=== PATIENT | female | born 1970 | race Caucasian/White ===

== ENCOUNTER → 2017-12-04 14:42 | Outpatient (CLI) | payer BC | END | disposition home or self-care (01) | LOC: D.MRI 14:42 | DX: M25.561 Pain in right knee (principal) ==

== ENCOUNTER → 2018-07-24 10:49 | Outpatient (CLI) | payer BC | END | disposition home or self-care (01) | LOC: D.MRI 10:49 | DX: M54.5 Low back pain (principal) ==

== ENCOUNTER → 2018-08-07 09:46 | Outpatient (CLI) | payer BC ==
--- NOTE | ~2018-08-07 | HEMODYNAMI ---
PATIENT:JASON DA SILVA MEDICAL RECORD: [id number] : 74 LOCATION:[facility] ADMISSION DATE: 08/07/18 Generatedon:08/07/201810:51 Patient name: JASON DA SILVA Patient #: [id number] SSN : : 1970 Date of study: 08/07/2018 Page: Of Hemodynamic Procedure Report Patient Data Patient Demographics Procedure consent was obtained First Name: JASON Gender: Female Last Name: REKHA : 1970 Patient #: [id number] Age: 48 year(s) Race: Unknown Additional ID: [id number] Contact details [address]: [address] [place] [address] rd State: [place] City: [place] Zip code: [address] Past Medical History Allergies Allergen Reaction Date Comments Reported Codeine 08/07/2018 Admission Admission Data Admission Date: 08/07/2018 Admission Time: 9:46 Procedure Procedure Types Cath Procedure Peripheral Cath Diagnostic Procedure Miscellaneous Aspiration/Injection (Joint) Procedure Description Procedure Date Procedure Date: 08/07/2018 Procedure Start Time: 10:35 Procedure Staff Name Function Gia Mas MD Performing Physician Gasper Marie RT Monitor Shirlene Thompson RN Nurse Procedure Data Cath Procedure Fluoroscopy Diagnostic fluoroscopy Total fluoroscopy Time: 0.9 time: 0.9 min min Diagnostic fluoroscopy Total fluoroscopy dose: 43 dose: 43 mGy mGy Hemodynamics Rest Pre Cath Intra NCS Post Cath Procedure Log Time Note 10:23:38 Gasper Marie RT (R) (CV) sent for patient. Start room use. 10:24:10 Patient received from Outpatients to IR Alert and oriented. Tansferred to table in Prone position. 10:24:19 Correct patient and procedure confirmed by team. 10:24:20 Signed procedure consent form obtained from patient. 10:24:24 Full Disclosure recording started 10:24:25 - 10:24:27 Pre-procedure instructions explained to patient. 10:24:28 Pre-op teaching completed and patient verbalized understanding. 10:24:51 Patient allergic to Codeine 10:25:04 Is patient on blood thinner?No 10:25:51 Right Lumbar was prepped with betadine and draped in sterile fashion. 10:35:19 Physician arrived 10:35:19 --------ALL STOP TIME OUT------ 10:35:22 Final Timeout: patient, procedure, and site verified with staff and physician. All members of the team are in agreement. 10:35:26 Lumbar site verified by team. 10:35:31 Sedation plan: Local Anesthetic Medication:Lidocaine 10:35:54 Procedure started. 10:35:59 Local anesthetic to Lumbar area with Lidocaine 1% by Gia Mas MD.INITIAL ACCESS ONLY 10:36:06 SAFE-T PLUS MYELOGRAM TRAY opened to sterile field. 10:48:43 Procedure ended.(Physican Out) 10:49:23 Fluoroscopy time 00.90 minutes. 10:49:26 Flurop Dose total: 43 10:49:26 Fluoroscopy dose: 43 mGy 10:50:07 bandaide applied to site .pt sent home Device Usage Item Name Manufacture Quantity Catalog Hospital Part Current Minimal Lot# / Number Charge Number Stock Stock Serial# Code SAFE-T [employer] 1 [id number] PLUS MYELOGRAM TRAY Signature Audit Temple Stage Time Signature Unsigned Intra-Procedure 08/07/2018 Gasper 10:51:01 AM Frank RT (R) (CV) Signatures Monitor : Gasper Signature : Frank RT Date : Time : [facility] [address] [place], [place] [id number]
== END | disposition home or self-care (01) ==
LOC: D.RAD 08-06 11:00
DX: M46.1 Sacroiliitis, not elsewhere classified (principal)

== ENCOUNTER → 2018-08-16 12:46 | Outpatient (CLI) | payer BC ==
--- NOTE | ~2018-08-16 | HEMODYNAMI ---
PATIENT:JASON DA SILVA MEDICAL RECORD: [id number] : 74 LOCATION:[facility] ADMISSION DATE: 08/16/18 Generatedon:08/16/201814:00 Patient name: JASON DA SILVA Patient #: [id number] SSN : : 1970 Date of study: 08/16/2018 Page: Of Hemodynamic Procedure Report Patient Data Patient Demographics Procedure consent was obtained First Name: JASON Gender: Female Last Name: REKHA : 1970 Patient #: [id number] Age: 48 year(s) Race: Unknown Additional ID: [id number] Contact details [address]: [address] [place] [address] rd State: [place] City: [place] Zip code: [address] Past Medical History Allergies Allergen Reaction Date Comments Reported Codeine 08/07/2018 Codeine 08/16/2018 Admission Admission Data Admission Date: 08/16/2018 Admission Time: 12:46 Procedure Procedure Types Cath Procedure Peripheral Cath Diagnostic Procedure Major Gifts Officer Peripheral Procedures Miscellaneous Aspiration/Injection (Joint) Procedure Description Procedure Date Procedure Date: 08/16/2018 Procedure Start Time: 13:39 Procedure Staff Name Function Freddy Abdul MD Performing Physician Mayra Guillen RT Dry Chain Puller Shirlene Thompson RN Nurse Procedure Data Cath Procedure Fluoroscopy Diagnostic fluoroscopy Total fluoroscopy Time: 0.2 time: 0.2 min min Diagnostic fluoroscopy Total fluoroscopy dose: 4 dose: 4 mGy mGy Hemodynamics Rest Pre Cath Intra NCS Post Cath Procedure Log Time Note 13:01:30 SAFE-T PLUS MYELOGRAM TRAY opened to sterile field. 13:27:57 Time tracking: Regular hours (M-F 7:00 - 5:00) 13:28:21 Patient received from Other to IR Alert and oriented. Tansferred to table in Supine position. 13:28:25 Signed procedure consent form obtained from patient. 13:28:40 Patient allergic to Codeine 13:28:43 Is patient on blood thinner?No 13:28:49 - 13:39:04 Physician arrived 13:39:05 --------ALL STOP TIME OUT------ 13:39:06 Final Timeout: patient, procedure, and site verified with staff and physician. All members of the team are in agreement. :39:32 Procedure started. :39:32 Full Disclosure recording started 13:39:42 Local anesthetic to right HIP with Lidocaine 1% by Freddy Abdul MD.INITIAL ACCESS ONLY 13:50:16 Procedure ended.(Physican Out) 14:00:20 Fluoroscopy time 00.20 minutes. 14:00:23 Fluoroscopy dose: 4 mGy 14:00:23 Flurop Dose total: 4 14:00:25 Procedure and supply charges have been captured, reviewed, submitted an d are correct. Device Usage Item Name Manufacture Quantity Catalog Hospital Part Current Minimal Lot# / Number Charge Number Stock Stock Serial# Code SAFE-T [employer]usion 1 [id number] PLUS MYELOGRAM TRAY Signature Audit [place]te Stage Time Signature Unsigned Intra-Procedure 08/16/2018 Mayra Guillen 2:00:54 PM RT(R) [facility] [address] [place] [address]
== END | disposition home or self-care (01) ==
LOC: D.RAD 12:46
DX: M25.551 Pain in right hip (principal)